=== PATIENT | female | born 1985 | race Hispanic/Latino ===

== ENCOUNTER 2024-10-19 19:00 | Inpatient (IN) | payer MEDICAID, OTHER, SELFPAY ==
[2024-10-19 20:23] VITALS: BMI 35.9
[2024-10-19] MEDS ORDERED: Misoprostol 200 MCG TAB PR PRN (21:25)
[2024-10-19] MEDS ORDERED: Carboprost 250 MCG/ML AMP IM PRN (21:25)
[2024-10-19] MEDS ORDERED: Methylergonovine 0.2 MG/ML VIAL IM PRN (21:25)
[2024-10-19] MEDS ORDERED: hydrALAZINE 20 MG/ML VIAL SLOW IVP PRN ×2 (21:25)
[2024-10-19] MEDS ORDERED: Boostrix 0.5 ML (Tdap) VIAL (>/=7 yrs of age) IM ONE (21:25)
[2024-10-19] MEDS ORDERED: Ondansetron PF 4 MG/2 ML Vial IVP PRN ×2 (21:25)
[2024-10-19] MEDS ORDERED: Diphenoxylate HCl/Atropine Tablet PO PRN (21:25)
[2024-10-19] MEDS ORDERED: Promethazine HCl 25 MG/ML VIAL IM PRN (21:25)
[2024-10-19] MEDS ORDERED: Bisacodyl 10 MG SUPP PR PRN (21:25)
[2024-10-19] MEDS ORDERED: Lanolin Ointment 7 GM TUBE TOP PRN (21:25)
[2024-10-19] MEDS ORDERED: Milk Of Magnesia 30 ML UDCUP PO PRN (21:25)
[2024-10-19] MEDS ORDERED: Lactated Ringer's 1,000 ML IV SCH (21:30)
[2024-10-19] MEDS ORDERED: Oxytocin 30 units/NS 500 ML 500 ML IV SCH (21:30)
[2024-10-19 21:55] LABS: Hematocrit 35.1 % (34.9-44.5); Mean Corpuscular HGB CONC 31.3 g/dL (32.0-36.0); Mean Corpuscular Hemoglobin 24.7 pg (27.0-33.0); Mean Corpuscular Volume 78.9 fL (81.6-98.3); Mean Platelet Volume 12.3 fL (7.4-10.4); Platelet Count 282 10x3/uL (150-450); RBC Distribution Width 15.5 % (11.5-14.5); Red Blood Cell (RBC) Count 4.45 10x6/uL (3.90-5.03); White Blood Cell (WBC) Count 10.6 10x3/uL (3.5-10.5)
[2024-10-19] MEDS ORDERED: Penicillin G Potassium 5 MILL.UNITS in Sodium Chloride 0.9% 100 ML IVPB SCH (22:00)
[2024-10-19 22:23] LABS: Syphilis Antibody Nonreactive (Nonreactive); Syphilis Antibody Index 0.02 S/CO (<1.00 Non-Reactive)
[2024-10-19 22:24] LABS: HBsAg Index 0.16 S/CO (0-0.99); HIV (1/2) Antibody/Antigen Non-Reactive (NonReactive); HIV 1/2 INDEX 0.05 S/CO (<1.00); Hep B Surf Ag - L&D Non-Reactive S/CO (NonReactive)
[2024-10-19] MEDS ORDERED: Famotidine/PF 20 mg/2ml Vial SLOW IVP PRN (22:47)
[2024-10-19] MEDS ORDERED: Bicitra 30 ML UDCUP PO PRN (22:47)
[2024-10-19] MEDS ORDERED: CEFAZOLIN 2 GM in Sodium Chloride 0.9% 100 ML IVPB SCH (23:00)
[2024-10-20 00:19] LABS: Analyzer IN Cardio CS NICU; Critical Notified By: CP.PH; RapidComm Collect By CBN; pH (Cord, venous) 7.337 (7.250-7.350)
[2024-10-20 00:21] LABS: Analyzer IN Cardio CS NICU; Critical Notified By: CP.PH; RapidComm Collect By CBN
[2024-10-20] MEDS ORDERED: hydrALAZINE 20 MG/ML VIAL SLOW IVP PRN (01:01)
[2024-10-20] MEDS ORDERED: Meperidine HCl/PF 25 MG (1 mL) VIAL SLOW IVP PRN (01:05)
[2024-10-20] MEDS ORDERED: Moisturizing Cream (Eucerin) 113 GM JAR TOP PRN (01:05)
[2024-10-20] MEDS ORDERED: Naloxone HCl 0.4 mg/ml Vial IV PRN (01:05)
[2024-10-20] MEDS ORDERED: diphenhydrAMINE 50 MG/ML VIAL IVP PRN (01:05)
[2024-10-20] MEDS ORDERED: Naloxone HCl 0.4 mg/ml Vial IVP PRN ×2 (01:05)
[2024-10-20] MEDS ORDERED: Promethazine HCl 25 MG/ML VIAL IM PRN (01:05)
[2024-10-20] MEDS ORDERED: HYDROmorphone 0.5 MG/0.5 ML SYRINGE SLOW IVP PRN (01:05)
[2024-10-20] MEDS ORDERED: fentaNYL 50 mcg/mL 1 mL Vial SLOW IVP PRN (01:05)
[2024-10-20] MEDS ORDERED: Ondansetron PF 4 MG/2 ML Vial IVP PRN (01:05)
[2024-10-20] MEDS ORDERED: Ketorolac Tromethamine 30 MG (1 mL) VIAL IVP SCH (01:15)
[2024-10-20] MEDS ORDERED: Communication Order-Pharmacy FS SCH (01:15)
[2024-10-20] MEDS ORDERED: Penicillin G 2.5 MILL.units 2.5 MILL.UNITS in Premix 1 BAG IVPB SCH (02:00)
[2024-10-20] MEDS: Ondansetron PF 4 MG/2 ML Vial IVP PRN (02:18)
[2024-10-20] MEDS: Ketorolac Tromethamine 30 MG (1 mL) VIAL IVP PRN (06:07)
[2024-10-20] MEDS: Lactated Ringer's 1,000 ML IV SCH (07:43)
[2024-10-20] MEDS: Morphine PF 10 MG/10 ML VIAL ONE (07:43)
[2024-10-20] MEDS: Azithromycin 500 MG VIAL ONE (07:44)
[2024-10-20] MEDS: Midazolam HCl 2 mg/2 ml Vial ONE (07:44)
[2024-10-20] MEDS: Oxytocin 10 UNITS/ML VIAL ONE ×3 (07:44)
[2024-10-20] MEDS: KETAMINE 100 MG/ML (5ML VIAL) ONE (07:44)
[2024-10-20] MEDS: Ketorolac Tromethamine 30 MG (1 mL) VIAL ONE (07:45)
[2024-10-20] MEDS: Ondansetron PF 4 MG/2 ML Vial ONE (07:45)
[2024-10-20] MEDS: Dexamethasone 10 MG/ML VIAL ONE (07:45)
[2024-10-20] MEDS: Ferrous Sulfate 325 MG TAB PO SCH (07:46)
[2024-10-20] MEDS: Misoprostol 200 MCG TAB ONE (07:46)
[2024-10-20] MEDS: Tranexamic Acid 1,000 MG/10 ML VIAL ONE (07:46)
[2024-10-20] MEDS: Methylergonovine 0.2 MG/ML VIAL ONE (07:46)
[2024-10-20] MEDS: Docusate 100 MG CAP PO SCH (09:13)
[2024-10-20] MEDS: HYDROcodone/Acetaminophen 5/325 mg Tablet PO PRN (16:38)
[2024-10-20] MEDS: Varicella virus, LIVE 0.5 ML VIAL SC ONE (22:34)
[2024-10-20] MEDS: Boostrix 0.5 ML (Tdap) VIAL (>/=7 yrs of age) IM ONE (22:34)
[2024-10-21 03:56] LABS: Hematocrit 26.9 % (34.9-44.5); Hemoglobin 8.5 g/dL (12.0-15.5); Mean Corpuscular HGB CONC 31.6 g/dL (32.0-36.0); Mean Corpuscular Hemoglobin 25.3 pg (27.0-33.0); Mean Corpuscular Volume 80.1 fL (81.6-98.3); Mean Platelet Volume 12.3 fL (7.4-10.4); Platelet Count 211 10x3/uL (150-450); RBC Distribution Width 15.5 % (11.5-14.5); Red Blood Cell (RBC) Count 3.36 10x6/uL (3.90-5.03); White Blood Cell (WBC) Count 13.4 10x3/uL (3.5-10.5)
[2024-10-21] MEDS: Ibuprofen 800 MG TAB PO SCH (05:28)
[2024-10-21] MEDS: Cyclobenzaprine 10 MG TAB PO SCH (08:46)
[2024-10-21] MEDS: Simethicone Chewable 80 MG TAB PO SCH (08:46)
[2024-10-22] MEDS: Cyclobenzaprine 10 MG TAB PO PRN (06:02)
[2024-10-22] MEDS ORDERED: Simethicone Chewable 80 MG TAB PO PRN (07:59)
[2024-10-22 16:16] VITALS: BP 114/69; TEMP 98.5
== END 2024-10-22 15:50 | disposition home or self-care (01) | DRG 784 ==
LOC: CSHLD 19:57 → EEVIPCON 19:57 → CSHLD 23:24 → CSHPP 10-20 03:15
PROVIDERS: ADMIT Family Medicine; ATTEND Family Medicine
PROC: 0UB70ZZ Excision of Bilateral Fallopian Tubes, Open Approach (ICD-10-PCS; principal; 2024-10-19)
PROC: 10D00Z1 Extraction of Products of Conception, Low, Open Approach (ICD-10-PCS; 2024-10-19)
DX: O99.824 Streptococcus B carrier state complicating childbirth (principal); B01.9 Varicella without complication; O98.52 Other viral diseases complicating childbirth; O76 Abnormality in fetal heart rate and rhythm complicating labor and delivery; Z3A.39 39 weeks gestation of pregnancy; Z37.0 Single live birth; O09.523 Supervision of elderly multigravida, third trimester; Z30.2 Encounter for sterilization
CPT/HCPCS: 36415; 51702; 82805; 85027; 86780; 86850; 86900; 86901; 87340; 87389; J1100; J1885; J2210; J2250; J2274; J2405; J2590